=== PATIENT | male | born 1980 | race Caucasian/White ===

== ENCOUNTER → 2017-01-28 | Outpatient (CLI) | payer OTHER ==
[2017-01-28 13:34] LABS: HEMATOCRIT 42.9 % (42.0-52.0); HEMOGLOBIN 15.3 g/dl (14.0-18.0); MEAN CELL VOLUME 83.1 fl (80.0-94.0); MEAN CORPUSCULAR HGB 29.7 pg (27.0-31.0); MEAN CORPUSCULAR HGB CONC 35.7 g/dl (33.0-37.0); MEAN PLATELET VOLUME 10.3 fl (9.6-12.3); RED BLOOD COUNT 5.16 10*6/uL (4.50-5.90); RED CELL DISTRI WIDTH 12.2 % (0-14.5); WHITE BLOOD COUNT 9.8 10*3/uL (4.8-10.8)
[2017-01-28 14:07] LABS: ALBUMIN 4.7 gm/dl (3.1-4.5); ALKALINE PHOSPHATASE 66 U/L (45-117); BILIRUBIN, TOTAL 0.5 mg/dl (0.2-1.0); BUN 16 mg/dl (7-24); CARBON DIOXIDE 27 mmol/L (21-32); CHLORIDE 104 mmol/L (98-107); CHOLESTEROL 217 mg/dL (<200); EST GLOM FILT AFRICAN AMERICAN > 60 ml/min; GLUCOSE 97 mg/dL (65-99); HDL CHOLESTEROL 56 mg/dl (40-60); LDL CHOLESTEROL 146 mg/dL (9-159); POTASSIUM 4.2 mmol/L (3.5-5.1); SGOT/AST 19 IU/L (3-35); SGPT/ALT 42 U/L (12-78); SODIUM 141 mmol/L (136-145); TOTAL PROTEIN 8.3 gm/dL (6.4-8.2); TRIGLYCERIDES 75 mg/dl (<150); VLDL CHOLESTEROL 15 mg/dL (6-40)
== END | disposition home or self-care (01) ==
LOC: LAB 13:15
PROVIDERS: Family Medicine
DX: Z13.220 Encounter for screening for lipoid disorders (principal); R53.83 Other fatigue; E55.9 Vitamin D deficiency, unspecified

== ENCOUNTER → 2017-02-10 | Day surgery (SDC) | payer OTHER ==
[2017-02-08 16:40] LABS: PROTHROMBIN TIME 10.4 SECONDS (9.0-12.4)
[~2017-02-10] VITALS: Ht 180.3 cm; Wt 98.9 kg
[~2017-02-10] MED LIST: HYDROCODONE BIT1 T11 PO
--- NOTE | ~2017-02-10 | O ---
[place], [place] OPERATIVE NOTE [id number] UNIT #: [id number] ROOM: DOCTOR: CÉSAR KOCH MD BIRTHDATE: [birth year] DOS: 02/10/2017 PREOPERATIVE DIAGNOSIS: Pilonidal cyst. POSTOPERATIVE DIAGNOSIS: Pilonidal cyst. PROCEDURE: Excision of pilonidal cyst. SURGEON: César Koch MD PARER: MS3. ANESTHESIA: General with endotracheal intubation. INDICATIONS: This is a 36-year-old male who is here for symptomatic pilonidal cyst. It was decided to take the patient to the operating room for an excision. The procedure and its complications were explained to the patient in detail preoperatively. Complications that were discussed included but were not limited to, bleeding, infection, recurrence, prolonged pain, and damage to underlying vital structures, he agreed to proceed. DESCRIPTION OF PROCEDURE: After identifying the patient, the patient was brought to the operating suite and laid in the supine position. After induction of general anesthesia, he was placed in a prone position on the operating room table and the parts were then painted and draped in the usual sterile fashion. Timeout procedure was called. An incision in an elliptical fashion was marked in the area of 2 opening that was seen in the midline of the pilonidal cyst. The skin and the subcutaneous tissue were incised. The cyst in its entirety along with the ellipse of the skin overlying it was excised and sent for histopathological diagnosis. This was done with the help of electrocautery and sharp dissection. Thereafter, saline was used for irrigation. A small flap of skin was created by incising on the subcutaneous tissue, so that adequate closure of the skin could be obtained. The subcutaneous tissue was approximated with the help of 0 Vicryl in an interrupted fashion and the skin edges were approximated with the help of 2-0 nylon in a mattress fashion. Local anesthesia was infiltrated and dressing was placed. The patient was placed back in a supine position and extubated uneventfully and brought back to the recovery room in stable fashion. There were no complications. Blood loss was minimal. Dr. César Koch, the attending surgeon was present throughout the operating case. [place], [place] OPERATIVE NOTE [facility] [id number] UNIT #: [id number] ROOM: DOCTOR: CHASE LONGORIA,CÉSAR BIRTHDATE: [birth year] César Koch MD CM:OPRECORD:OPERATIVE NOTE 1024 [id number] CÉSAR KOCH MD 02/10/17 1045 interface
[2017-02-10 08:48] VITALS: BP 142/79
[2017-02-10 10:12] VITALS: BP 107/57
[2017-02-10 10:27] VITALS: BP 101/57
[2017-02-10 10:42] VITALS: BP 126/80
[2017-02-10 10:57] VITALS: BP 116/76
[2017-02-10 11:12] VITALS: BP 116/75
== END | disposition home or self-care (01) ==
LOC: SDC 02-08 14:00
PROVIDERS: Surgery
DX: L05.91 Pilonidal cyst without abscess (principal)